=== PATIENT | male | born 1980 | race Caucasian/White ===

== ENCOUNTER 2020-02-08 23:04 | Inpatient (IN) | payer OTHER, MEDICARE ==
[~2020-02-08] VITALS: Ht 193 cm; Wt 124.8 kg
--- NOTE | ~2020-02-08 | CON ---
[address] [address] CONSULTATION Name: ED VALDOVINOS Room: [address] IN .R.#: [id number] Admission: 02/09/20 Attend Phys: Hmeal Haines MD Discharge: Date of : 82 Report #: [id number] THIS REPORT FOR: //name// cc: Maximo Plaat MD, James MD ~ THIS REPORT FOR: //name// CC: Hemal Plata DATE OF SERVICE: 02/10/2020 CHIEF COMPLAINT: Followup of cellulitis with superficial ulceration to the right dorsal second toe. HISTORY OF PRESENT ILLNESS: He has diabetes mellitus with distal sensory neuropathy and end-stage renal disease. He is on oral clindamycin 300 mg t.i.d. with good tolerance. Wound cultures are pending, no organisms on Gram stain. Blood culture negative. The patient feels well, good appetite, denies foot pain, although he has extensive diabetic peripheral sensory neuropathy. LABORATORY DATA: WBC 7.2, RBC 2.86, hemoglobin 8.7, hematocrit 24.8, platelets 229. BUN 28, creatinine 3.3, potassium 3.3. PHYSICAL EXAMINATION: VITAL SIGNS: Temperature 97.9, pulse 79, respirations 15, blood pressure 145/85. EXTREMITIES: There is decreased inflammation of the right second toe with superficial ulcer overlying the PIP joint. The wound has red granulation with some loose blistered skin at the margins. There is no exposed bone, tendon, or joint. He has rigid hammertoe contractures of the right second through fifth toes. His foot is warm with strong dorsalis pedis and posterior tibial pulses. Overall, much clinically improved. The left BKA stump has some dry keratosis with no inflammation or open lesions. IMPRESSION: Resolving cellulitis with ulceration of right dorsal second toe, complicated by type 2 diabetes mellitus. PLAN: I debrided the wound with scalpel and scissors to remove subcutaneous tissue and slough from the wound bed. Scant bleeding was achieved and stopped with pressure. The wound was cleansed and dressed with Xeroform, silver foam, and roll gauze. I do not anticipate any surgical debridement at this time. By: 1353 [id number] Martin DPM /christiano
[~2020-02-08 23:04] MED LIST: DOXYCYCLINE 10100 MG PO; INVOKANA300 MG PO; LANTUS100 UNIT/M SUBQ; LISINOPRIL20 MG PO; METFORMIN HCL500 MG PO; NORCO 5-325 TA1 EAC1 PO; NOVOLOG100 UNIT/1 SUBQ
[2020-02-08 23:50] VITALS: BP 200/119
[2020-02-08] MEDS ORDERED: METFORMIN HCL500 M3 PO (23:54)
[2020-02-08] MEDS ORDERED: LIPITOR80 MG PO (23:54)
[2020-02-08] MEDS ORDERED: XANAX 0.5 MG0.5 M1 PO (23:55)
[2020-02-08] MEDS ORDERED: JARDIANCE25 MG PO (23:55)
[2020-02-08] MEDS ORDERED: ESCITALOPRAM OX10 MG PO (23:56)
[2020-02-09 01:31] LABS: ABSOLUTE BASOPHILS 0.1 thou/uL (0.0-0.2); ABSOLUTE EOSINOPHILS 0.4 thou/uL (0.0-0.7); ABSOLUTE LYMPHOCYTES 1.3 thou/uL (0.8-5.3); ABSOLUTE MONOCYTES 0.8 thou/uL (0.0-1.2); ABSOLUTE NEUTROPHILS 11.4 thou/uL (1.6-8.1); BASOPHILS 0.7 %; EOSINOPHILS 3.2 %; HEMOGLOBIN 9.2 gm/dL (14.0-18.0); LYMPHOCYTES 9.4 %; MCH 30.1 pg (26.0-34.0); MCHC 35.2 g/dL (28.0-37.0); MCV 85.3 fL (80.0-100.0); MONOCYTES 5.5 %; MPV 7.3 fl. (7.2-11.1); NUCLEATED RBCS 0 /100WBC; PLATELET COUNT* 258 thou/uL (150-400); POLYS 81.2 %; RBC 3.05 mil/uL (4.50-6.00); RDW-CV 13.8 % (10.5-14.5); WBC 14.1 thou/uL (4.0-11.0)
[2020-02-09 01:40] LABS: CALCIUM 6.6 mg/dL (8.5-10.1); CREATININE 3.7 mg/dL (0.6-1.3)
[2020-02-09 01:41] LABS: POTASSIUM 2.5 mmol/L (3.5-5.1)
[2020-02-09 03:28] VITALS: BP 138/84
[2020-02-09] MEDS ORDERED: ALPRAZOLAM XR3 MG PO (08:11)
[2020-02-09] MEDS ORDERED: XANAX 0.5 MG0.5 MG PO (08:14)
[2020-02-09] MEDS ORDERED: CARVEDILOL25 MG PO ×2 (08:27→08:29)
[2020-02-09 08:30] VITALS: BP 133/74
--- NOTE | 2020-02-09 08:48 | NUR ---
Pt is A&O. Resides at home with his and 2 kids. Independent. Pt has a left leg prothesis, does not use any DME when wearing prothesis, uses a wc when he is not wearing prothesis. No hx of HH or SNF. Goal is home at ut, no needs anticipated. Following.
[2020-02-09 10:09] LABS: MAGNESIUM 1.9 mg/dL (1.8-2.4)
--- NOTE | 2020-02-09 11:53 | NUR ---
Nutrition: Pt admitted with Rt toe FX. H/o Lt BKA/prosthesis, DM. Has JERMAN. Meds: vanc, metformin, insulin, carvedilol, statin. BG 181, albumin 2.4. Admit wt: 260#. Special Precautions tray ordered. COVID pending. RD did not enter room. Consult recevied for wound on Lt stump. Ordered Santy to aid in wound healing. GOALS: tight BG control, Santy BID. Consider mild risk at this time.
[2020-02-09 12:00] VITALS: BP 155/89
[2020-02-09 13:34] LABS: URINE BILIRUBIN NEGATIVE (Negative); URINE BLOOD 2+ (Negative); URINE CLARITY CLEAR; URINE COLOR YELLOW; URINE GLUCOSE-RANDOM 1+ (Negative); URINE KETONES NEGATIVE (Negative); URINE LEUKOCYTES-REFLEX NEGATIVE (Negative); URINE NITRITE-REFLEX NEGATIVE (Negative); URINE PROTEIN 3+ (Negative); URINE UROBILINOGEN 0.2 E.U./dl (0.2-1.0)
[2020-02-09 13:41] LABS: BACTERIA-REFLEX 1-9 Few /HPF (None Seen); COARSE GRANULAR CASTS 0-3 Few /LPF (None Seen); CRYSTALS None Seen /LPF (None Seen); HYALINE CASTS 0-3 Few /LPF (None Seen); SQUAMOUS 0-3 Few /LPF (0-3); URINE RBC 0-2 Rare /HPF (0-2); URINE WBC-REFLEX 0-5 Rare /HPF (0-5)
[2020-02-09 15:25] LABS: ALBUMIN 1.8 g/dL (3.4-5.0); CALCIUM 6.8 mg/dL (8.5-10.1); CREATININE 3.6 mg/dL (0.6-1.3); POTASSIUM 3.1 mmol/L (3.5-5.1); TOTAL BILIRUBIN 0.2 mg/dL (<0.1-1.0); TOTAL PROTEIN 5.7 g/dL (6.4-8.2)
[2020-02-10] VITALS: BP 103/62
[2020-02-10 01:12] VITALS: BP 157/93
[2020-02-10 04:00] VITALS: BP 155/90
--- NOTE | 2020-02-10 05:47 | NUR ---
NO ACUTE CHANGES THROUGHOUT SHIFT. VSS. ALL ROUNDINGS COMPLETED, ALL NEEDS MET, FULL ASSESSMENT COMPLETED CHARTED.
[2020-02-10 06:14] LABS: ABSOLUTE BASOPHILS 0.1 thou/uL (0.0-0.2); ABSOLUTE EOSINOPHILS 0.4 thou/uL (0.0-0.7); ABSOLUTE LYMPHOCYTES 1.2 thou/uL (0.8-5.3); ABSOLUTE MONOCYTES 0.6 thou/uL (0.0-1.2); ABSOLUTE NEUTROPHILS 4.9 thou/uL (1.6-8.1); BASOPHILS 1.1 %; EOSINOPHILS 5.9 %; HEMATOCRIT 24.8 % (42.0-52.0); HEMOGLOBIN 8.7 gm/dL (14.0-18.0); LYMPHOCYTES 16.5 %; MCH 30.3 pg (26.0-34.0); MCHC 34.9 g/dL (28.0-37.0); MCV 86.7 fL (80.0-100.0); MONOCYTES 8.7 %; MPV 7.7 fl. (7.2-11.1); NUCLEATED RBCS 0 /100WBC; PLATELET COUNT* 229 thou/uL (150-400); POLYS 67.8 %; RBC 2.86 mil/uL (4.50-6.00); RDW-CV 13.6 % (10.5-14.5); WBC 7.2 thou/uL (4.0-11.0)
[2020-02-10 06:31] LABS: CALCIUM 6.6 mg/dL (8.5-10.1); CREATININE 3.3 mg/dL (0.6-1.3); MAGNESIUM 1.8 mg/dL (1.8-2.4); PHOSPHORUS* 4.1 mg/dL (2.5-4.9); POTASSIUM 3.3 mmol/L (3.5-5.1)
[2020-02-10 07:54] VITALS: BP 154/99
--- NOTE | 2020-02-10 10:55 | NUR ---
ASSUMED CARE OF PT THIS AM AROUND 0715- PRIMARY CARE PEDIATRICIAN IN PLACE ORDERED, TRACING SR- UPON ASSESSMENT PT NOTED TO BE RESTING IN BED- PT A&O X4- CONT OF BOWEL AND BLADDER- UP AD-LANA WITH NOTED LBKA AND USE OF PROSTHESIS- LCTA, RESP EVEN AND UN-LABORED- VSS, O2 SAT 100% ON RA- ABD SOFT/ROUND/NON-TENDER, BS X4 QUADS- LAST BM REPORTED 02/09/20- IV NOTED TO RIGHT AC AND LEFT FA INTACT, IVF INFUSSING PRESCRIBED- GOOD PO INTAKE NOTED WITH MEALS, BS MONITORED ORDERED WITH SSI PRESCRIBED- PT RATES PAIN 12/08 TO RIGHT 2ND TOE AND LEFT STUMP THIS AM- PRN HYDROCODONE GIVEN AT 0835, PT REPORTS PAIN MEDICATION TO BE EFFECTIVE- CALL LIGHT AND PERSONAL BELONGINGS WITH IN REACH- PT MAKES NEEDS KNOWN- ALL NEEDS MET AT THIS TIME-WCTM
[2020-02-10 12:00] VITALS: BP 145/85
--- NOTE | 2020-02-10 13:48 | CON ---
[address] [address] CONSULTATION Name: ED VALDOVINOS Room: [address] IN [facility]#: [id number] Admission: 02/09/20 Attend Phys: Hemal Haines MD Discharge: Date of : 82 Report #: [id number] THIS REPORT FOR: //name// cc: Maximo Plata MD, James MD ~ THIS REPORT FOR: //name// CC: Hemal Plata DATE OF SERVICE: 02/09/2020 ADMISSION DIAGNOSIS: Hypokalemia, hypomagnesemia, hyponatremia, cellulitis, right second toe. HISTORY OF PRESENT ILLNESS: He was admitted to the Emergency Department last night with chills while resting at home. He has a history of septicemia secondary to diabetes and deep tissue infection of his left BKA stump and right foot. He has had prior right hallux and partial first metatarsal resection and multiple surgical debridements for osteomyelitis. He had subsequent healing, denies a history of vascular surgery to either extremity. He has a chronic right Charcot foot deformity. He noticed the right second toe becoming red and inflamed with blister formation several days ago. His blood glucose normally runs in the 150-200 range. He is diabetic peripheral sensory neuropathy and stage 2 chronic kidney disease. He was initially on parenteral vancomycin, converted to oral clindamycin 300 mg q.i.d. LABORATORY DATA: WBC 14.1, RBC 3.05, hemoglobin 9.2, hematocrit 26.0, platelets 258. BUN 28, creatinine 3.6, glucose 188. Albumin 1.8. ESR 99. PHYSICAL EXAMINATION: Temperature 98.6, pulse 111, respirations 22, blood pressure 155/89. There is inflammation to the right second toe with rigid hammertoe deformity. There is intact blister to the dorsal and plantar base of the toe. The toenail is intact, but slightly loose. The remaining foot has no open lesions. He has had a prior right hallux and distal first ray resection with healed scar. The right third, fourth and fifth toes are also rigid hammertoe deformities with no lesions. He has strong right dorsalis pedis and posterior tibial pulses. He has hemosiderosis and venous insufficiency to the right lower extremity with +3 edema. He has a stable Charcot type foot with slight rocker bottom deformity at the calcaneocuboid joint. He has a fairly rectus foot type and can achieve roughly 90 degrees at the ankle. There is some callusing to the stump of the left BK amputation with no inflammation or drainage. IMPRESSION: Cellulitis with blisters of the right 2nd toe, diabetes mellitus, peripheral neuropathy, end-stage renal disease, [place] [address] CONSULTATION Name: ED VALDOVINOS Room: [address] IN [facility]#: [id number] Admission: 02/09/20 Attend Phys: Hmeal Haines MD Discharge: Date of : 82 Report #: [id number] PLAN: Tomorrow drain his blisters and perhaps perform a toenail avulsion, depending on how loose the nail was and if there are any blisters contiguous with the nail bed. I do not anticipate any formal surgical debridement. X-rays were negative for osteomyelitis. <ELECTRONICALLY SIGNED> By: Stef Martin DPM 02/10/20 1348 1738 1958Stef Martin DPM /christiano
[2020-02-10 16:00] VITALS: BP 136/78
[2020-02-11] VITALS: BP 138/70
[2020-02-11 03:57] VITALS: BP 137/87
--- NOTE | 2020-02-11 05:21 | NUR ---
NO ACUTE CHANGES THROUGHOUT SHIFT. VSS. ALL ROUNDINGS COMPLETED, ALL NEEDS MET, FULL ASSESSMENT COMPLETED CHARTED.
[2020-02-11 08:00] VITALS: BP 154/93
--- NOTE | 2020-02-11 08:23 | NUR ---
RECIEVED REPORT AROUND 0710. ASSUMED CARE. VS AND ASSESSMENT CHARTED. PT HAD NO REPORT OF PAIN. ATTACHED TO HEART MONITOR. CRITICAL I&O IN PLACE. IV INTACT. LEFT BKA WOUND OPEN TO AIR AND HEALING. RIGHT TOE WRAPPED. PT STATED "I'M ABLE TO GET AROUND FINE." PT WOULD LIKE TO TALK TO THE DOCTOR ABOUT IV FLUIDS BEFORE RECIEVING ANY DUE TO PAST EXPERIENCE. CALL LIGHT WITHIN REACH. WILL CONTINUE TO MONITOR.
[2020-02-11] MEDS ORDERED: CLEOCIN HCL300 MG PO (09:52)
[2020-02-11 10:14] LABS: ABSOLUTE BASOPHILS 0.1 thou/uL (0.0-0.2); ABSOLUTE EOSINOPHILS 0.3 thou/uL (0.0-0.7); ABSOLUTE LYMPHOCYTES 0.9 thou/uL (0.8-5.3); ABSOLUTE MONOCYTES 0.5 thou/uL (0.0-1.2); ABSOLUTE NEUTROPHILS 4.3 thou/uL (1.6-8.1); BASOPHILS 1.1 %; EOSINOPHILS 5.2 %; HEMATOCRIT 23.2 % (42.0-52.0); HEMOGLOBIN 8.1 gm/dL (14.0-18.0); LYMPHOCYTES 15.5 %; MCH 30.5 pg (26.0-34.0); MCHC 35.2 g/dL (28.0-37.0); MCV 86.7 fL (80.0-100.0); MONOCYTES 7.5 %; MPV 7.8 fl. (7.2-11.1); NUCLEATED RBCS 0 /100WBC; PLATELET COUNT* 222 thou/uL (150-400); POLYS 70.7 %; RBC 2.67 mil/uL (4.50-6.00); RDW-CV 13.5 % (10.5-14.5); WBC 6.1 thou/uL (4.0-11.0)
[2020-02-11 10:26] LABS: CALCIUM 6.9 mg/dL (8.5-10.1); CREATININE 3.1 mg/dL (0.6-1.3); POTASSIUM 3.7 mmol/L (3.5-5.1)
[2020-02-11 12:00] VITALS: BP 129/76
[2020-02-11 16:17] VITALS: BP 151/89
--- NOTE | 2020-02-11 16:33 | NUR ---
NO NEW CHANGES FROM MORNING ASSESSMENT. PT HAS NOT REPORTED ANY PAIN AFTER THIS MORNING. HEART MONITOR IN PLACE. IV INTACT. HOURLY ROUNDING PERFORMED. MEDICATION PER AUG. CALL LIGHT WITHIN REACH. WILL CONTINUE TO MONITOR.
[2020-02-11 20:00] VITALS: BP 171/102
[2020-02-12] VITALS: BP 161/91
[2020-02-12 04:06] LABS: GLYCOHEMOGLOBIN (HGB A1C) 10.4 % (4.8-5.6)
[2020-02-12 04:29] VITALS: BP 163/94
[2020-02-12 05:02] LABS: ABSOLUTE BASOPHILS 0.1 thou/uL (0.0-0.2); ABSOLUTE EOSINOPHILS 0.3 thou/uL (0.0-0.7); ABSOLUTE LYMPHOCYTES 1.3 thou/uL (0.8-5.3); ABSOLUTE MONOCYTES 0.5 thou/uL (0.0-1.2); ABSOLUTE NEUTROPHILS 4.3 thou/uL (1.6-8.1); BASOPHILS 1.3 %; EOSINOPHILS 4.6 %; HEMATOCRIT 25.1 % (42.0-52.0); HEMOGLOBIN 8.7 gm/dL (14.0-18.0); LYMPHOCYTES 20.2 %; MCH 29.9 pg (26.0-34.0); MCHC 34.7 g/dL (28.0-37.0); MCV 85.9 fL (80.0-100.0); MONOCYTES 7.3 %; MPV 7.4 fl. (7.2-11.1); NUCLEATED RBCS 0 /100WBC; PLATELET COUNT* 244 thou/uL (150-400); POLYS 66.6 %; RBC 2.92 mil/uL (4.50-6.00); RDW-CV 13.9 % (10.5-14.5); WBC 6.5 thou/uL (4.0-11.0)
[2020-02-12 05:08] LABS: CALCIUM 7.2 mg/dL (8.5-10.1); CREATININE 3.1 mg/dL (0.6-1.3); POTASSIUM 3.2 mmol/L (3.5-5.1)
--- NOTE | 2020-02-12 05:36 | NUR ---
ASSESSMENT COMPLETED AT BEDSIDE, PLEASE REFER TO CHARTING FOR DETAILS. MEDICATIONS ADMINISTERED PER MAR. HOURLY ROUNDING FOR SAFETY. C/O PAIN TO LEGS, TREATED WITH PRN PAIN MEDICATIONS. NO OTHER ISSUES NOTED BY PT AT THIS TIME. RESTING IN BED WITH CALL LIGHT WITHIN REACH.
[2020-02-12 08:00] VITALS: BP 168/98
[2020-02-12 11:50] VITALS: BP 187/106
--- NOTE | 2020-02-12 13:17 | CON ---
[address] [address] CONSULTATION Name: ED VALDOVINOS Room: [address] IN M.R.#: [id number] Admission: 02/09/20 Attend Phys: Hemal Haines MD Discharge: Date of : 82 Report #: [id number] THIS REPORT FOR: //name// cc: Maximo Plata MD, James MD ~ THIS REPORT FOR: //name// CC: Hemal Plata DATE OF SERVICE: 02/09/2020 NEPHROLOGY CONSULT CONSULTING PHYSICIAN: Dr. Haines. REASON FOR NEPHROLOGY CONSULTATION: Hypokalemia, hypomagnesemia, and acute kidney injury. REASON FOR ADMISSION: Hypokalemia, hypomagnesemia, and acute kidney injury. HISTORY OF PRESENT ILLNESS: This is a 40-year-old male who has past medical history of diabetes type 2, diagnosed about 18 years ago and he is not aware if he has diabetic retinopathy or not; has history of hypertension and other medical problems, came in after he was having chills at home. He was having drainage from his wound from the anterior aspect of his left above-knee amputation. Amputation was done about [address] [facility]. His creatinine was found to be 3.7. Prior to that, he had a creatinine of 1.6 in 2017. He denies having any knowledge of any kidney problems, but says that when he did have his below-knee amputation 3 years ago he did have some kidney dysfunction at that time. He also says that his lisinopril was stopped a few years ago because of kidney dysfunction. He reports not using any NSAIDs. No history of kidney stones. He does have constant diarrhea because of irritable bowel syndrome. In addition to other medications, he does take metformin and Jardiance. He has no trouble urinating. He has been started on vancomycin over here in the IV form to help with his infection of the stump. He was also found to have a sodium of 134, potassium of 2.5, and magnesium 1.0. REVIEW OF SYSTEMS: As mentioned in history of present illness. Otherwise, no shortness of breath, no nausea or vomiting. Otherwise, 10-point review of systems are negative. ALLERGIES: No known allergies. HOME MEDICATIONS: Include he is not taking lisinopril anymore. He is taking metformin, insulin glargine, atorvastatin, Jardiance which started about [address] [place] [address] CONSULTATION Name: ED VALDOVINOS Room: [address] IN [facility]#: [id number] Admission: 02/09/20 Attend Phys: Hemal Haines MD Discharge: Date of : 82 Report #: [id number] months ago, citalopram, alprazolam, carvedilol, and insulin aspart. PAST MEDICAL AND SURGICAL HISTORY: Includes diabetes mellitus diagnosed about 18 years ago, amputation of left leg below-knee amputation, blood clots, hypertension, osteomyelitis, likely chronic kidney disease, sepsis x 2, and gangrene. SOCIAL HISTORY: Does not use recreational drugs. He does smoke every day. He lives at home with his and has 2 children. Uses alcohol only on special occasions, 1-2 beers. FAMILY HISTORY: No history of kidney problems in the family that he knows of. PHYSICAL EXAMINATION: VITAL SIGNS: Blood pressure is 133/74, respiratory rate is 16, pulse rate is 78, temperature is 36.3, and pulse ox 97% on room air. GENERAL: He is awake, alert, and oriented x 3. HEAD AND EYES: Atraumatic, normocephalic. Normal conjunctivae. EARS, NOSE, AND THROAT: Normal ears and nose. Mucous membranes are moist. NECK: No JVD. CHEST: Bilaterally clear to auscultation posteriorly. No crackles or wheezing. CARDIOVASCULAR: S1, S2 normal. No murmurs noted. ABDOMEN: Soft, nondistended, and nontender. Bowel sounds are present. EXTREMITIES: Lower extremities, there is no lower extremity edema. Left below-knee amputation and there is an open area on the stump. Currently, there is no drainage from there. NEUROLOGIC: Neurologic function is Grossly intact. PSYCHIATRIC: Mood and affect seems to be normal. LABORATORY DATA: WBC 14.1, hemoglobin is 9.2, and platelet count was normal. Sodium was 134, potassium was 2.5, magnesium is 1.0, and creatinine was 3.7 and other labs are reviewed. IMAGING: Toe x-ray was reviewed. ASSESSMENT: 1. Acute kidney injury on likely chronic kidney disease, baseline creatinine is not known. Creatinine was 3.7 on admission. UA and renal ultrasound need to be checked. He likely has underlying diabetic nephropathy. He does have persistent diarrhea because of irritable bowel syndrome and he does take Jardiance at home, which could have exacerbated his kidney injury as well. 2. Mild hyponatremia because of acute renal insufficiency. 3. Hypokalemia, this is because of diarrhea. 4. Hypomagnesemia, also diarrhea could be contributing, metformin could also be contributing to his diarrhea. 5. Left below-knee amputation stump infection. He is on antibiotics as per [address] [place] [address] CONSULTATION Name: ED VALDOVINOS Room: [address] IN M.R.#: [id number] Admission: 02/09/20 Attend Phys: Hemal Haines MD Discharge: Date of : 82 Report #: [id number] primary team. 6. History of hypertension. Blood pressure seems to be controlled now. It was high when he first came into the hospital, but he was in pain . 7. History of diabetic neuropathy. PLAN: 1. Continue with IV fluids, normal saline at 100 mL an hour, check a bladder scan and he should be on strict I's and O's. We will check a UA and renal ultrasound. 2. We will check a CPK level as well. 3. We will check a urine protein to creatinine ratio. 4. Try to find his baseline creatinine from his doctor's office. 5. Try to avoid vancomycin and also avoid use of Bactrim. Please use an alternative antibiotic. 6. Keep holding metformin as well as Jardiance. No SÁNCHEZ inhibitors or ARB. In fact, he was not taking lisinopril at home as well. 7. Avoid any NSAIDs and other nephrotoxic agents and IV contrast. 8. Labs in the morning and keep replacing potassium and magnesium according to protocol. Thank you for this consultation. We will continue to follow with you. Discussed with the patient and the patient's nurse. <ELECTRONICALLY SIGNED> By: Twyla Bonilla MD 02/12/20 1317 0940 [id number] jayesh Del Rio
[2020-02-12 15:36] VITALS: BP 187/106
[2020-02-12 15:39] VITALS: BP 187/106
--- NOTE | 2020-02-12 16:12 | NUR ---
CM SPOKE TO THE PT TO F/U AND DISCUSS D/C PLANNING NEEDS. PT CONFIRMS NO NEEDS ANTICIPATED AT D/C. CM WILL REMAIN AVAILABLE TO ASSIST AND FOLLOW NEEDED.
--- NOTE | 2020-02-12 18:12 | NUR ---
At 1630 pt was discharged from room 221. Pt remains alert, oriented x 4. Skin warm and dry to touch. No c/o pain or distress. Pt allows his dismissal instructions to be reviewed with his spouse. IV dc'd by sky. Pt to exit via wheelchair and assisted to car. Stable at time of dismissal
== END 2020-02-12 16:30 | disposition home or self-care (01) | DRG 570 ==
LOC: M.ERS 23:04 → M.2W 02-09 03:01 → M.TBA-ER 02-09 03:01 → M.2W 02-09 03:06
PROVIDERS: Emergency Medicine; Internal Medicine; ADMIT Internal Medicine; ATTEND Internal Medicine
PROC: 0JBQ0ZZ Excision of Right Foot Subcutaneous Tissue and Fascia, Open Approach (ICD-10-PCS; principal; 2020-02-09)
DX: L03.031 Cellulitis of right toe (principal); N18.6 End stage renal disease; N17.9 Acute kidney failure, unspecified; E87.1 Hypo-osmolality and hyponatremia; L97.829 Non-pressure chronic ulcer of other part of left lower leg with unspecified severity; L03.116 Cellulitis of left lower limb; T87.44 Infection of amputation stump, left lower extremity; I12.0 Hypertensive chronic kidney disease with stage 5 chronic kidney disease or end stage renal disease; E11.22 Type 2 diabetes mellitus with diabetic chronic kidney disease; N18.9 Chronic kidney disease, unspecified; E87.6 Hypokalemia; E83.42 Hypomagnesemia; E11.40 Type 2 diabetes mellitus with diabetic neuropathy, unspecified; E11.621 Type 2 diabetes mellitus with foot ulcer; L97.519 Non-pressure chronic ulcer of other part of right foot with unspecified severity; F17.210 Nicotine dependence, cigarettes, uncomplicated; K58.0 Irritable bowel syndrome with diarrhea; E78.5 Hyperlipidemia, unspecified; Y83.8 Other surgical procedures as the cause of abnormal reaction of the patient, or of later complication, without mention of misadventure at the time of the procedure; S92.911A Unspecified fracture of right toe(s), initial encounter for closed fracture; X58.XXXA Exposure to other specified factors, initial encounter; Y93.89 Activity, other specified; Y92.89 Other specified places as the place of occurrence of the external cause; Y99.8 Other external cause status; Z03.818 Encounter for observation for suspected exposure to other biological agents ruled out; Z89.512 Acquired absence of left leg below knee

== ENCOUNTER → 2020-02-23 | Outpatient (CLI) | payer OTHER, MEDICARE ==
[~2020-02-23] MED LIST changes: +ALPRAZOLAM XR3 MG PO; +CARVEDILOL25 MG PO; +CLEOCIN HCL300 MG PO; +ESCITALOPRAM OX10 MG PO; +JARDIANCE25 MG PO; +LIPITOR80 MG PO; +METFORMIN HCL500 M3 PO; +XANAX 0.5 MG0.5 M1 PO; +XANAX 0.5 MG0.5 MG PO
[2020-02-23 12:10] LABS: ABSOLUTE BASOPHILS 0.1 thou/uL (0.0-0.2); ABSOLUTE EOSINOPHILS 0.5 thou/uL (0.0-0.7); ABSOLUTE LYMPHOCYTES 1.1 thou/uL (0.8-5.3); ABSOLUTE MONOCYTES 0.6 thou/uL (0.0-1.2); BASOPHILS 1.2 %; EOSINOPHILS 6.1 %; HEMATOCRIT 24.8 % (42.0-52.0); HEMOGLOBIN 8.6 gm/dL (14.0-18.0); LYMPHOCYTES 13.2 %; MCH 29.8 pg (26.0-34.0); MCHC 34.5 g/dL (28.0-37.0); MCV 86.4 fL (80.0-100.0); MPV 7.6 fl. (7.2-11.1); NUCLEATED RBCS 0 /100WBC; PLATELET COUNT* 251 thou/uL (150-400); POLYS 72.5 %; RBC 2.88 mil/uL (4.50-6.00); RDW-CV 13.6 % (10.5-14.5); WBC 8.3 thou/uL (4.0-11.0)
[2020-02-23 12:26] LABS: ALBUMIN 2.2 g/dL (3.4-5.0); ALKALINE PHOSPHATASE 81 U/L (46-116); ANION GAP 9 mmol/L (7-16); BUN 32 mg/dL (7-18); CALCIUM 7.2 mg/dL (8.5-10.1); CHLORIDE 107 mmol/L (98-107); CHOLESTEROL 133 mg/dL (<200); CO2 25 mmol/L (21-32); CREATININE 3.9 mg/dL (0.6-1.3); DIRECT BILIRUBIN 0.1 mg/dL (<0.1-0.3); GLUCOSE 148 mg/dL (70-99); HDL CHOLESTEROL 42 mg/dL (>40); LDL CHOLESTEROL 52 mg/dL (<100); POTASSIUM 4.2 mmol/L (3.5-5.1); SGOT 19 U/L (15-37); SGPT 22 U/L (30-65); SODIUM 141 mmol/L (136-145); TC:HDL 3.2 Ratio (Not establshd); TOTAL BILIRUBIN 0.3 mg/dL (<0.1-1.0); TOTAL PROTEIN 6.4 g/dL (6.4-8.2); TRIGLYCERIDE 198 mg/dL (<150); VLDL 40 mg/dL (<40)
[2020-02-23 12:27] LABS: SERUM ASSESSMENT Clear
[2020-02-24 02:06] LABS: GLYCOHEMOGLOBIN (HGB A1C) 9.3 % (4.8-5.6)
== END ==
LOC: M.LAB 11:27
PROVIDERS: ATTEND Surgery
DX: Z00.00 Encounter for general adult medical examination without abnormal findings (principal)

== ENCOUNTER → 2020-02-26 | Outpatient (CLI) | payer OTHER, MEDICARE | LOC: M.ULTRA 10:30 | PROVIDERS: ATTEND Surgery | DX: M79.89 Other specified soft tissue disorders (principal); R60.0 Localized edema ==

== ENCOUNTER → 2020-03-11 | Outpatient (CLI) | payer OTHER, MEDICARE ==
[2020-03-11 09:30] LABS: CREATININE 5.2 mg/dL (0.6-1.3)
[2020-03-11 09:50] LABS: CALCIUM 5.9 mg/dL (8.5-10.1)
== END ==
LOC: M.LAB 08:48
PROVIDERS: ATTEND Nurse Practitioner Family
DX: N17.9 Acute kidney failure, unspecified (principal)

== ENCOUNTER → 2020-04-11 | Outpatient (CLI) | payer OTHER, MEDICARE ==
[~2020-04-11] MED LIST changes: +FUROSEMIDE 40 M40 M1 PO; +HUMALOG100 UNIT/1 SUBQ; +HYDRALAZINE 5050 MG PO; +NORCO 10-325 T1 EACH PO; +NORCO 5-325 TA1 EAC2 PO; +PREGABALIN50 MG PO
== END ==
LOC: M.LAB 14:51
PROVIDERS: ATTEND Surgery
DX: Z01.812 Encounter for preprocedural laboratory examination (principal); Z20.828 Contact with and (suspected) exposure to other viral communicable diseases; E11.22 Type 2 diabetes mellitus with diabetic chronic kidney disease; N18.6 End stage renal disease; Z99.2 Dependence on renal dialysis

== ENCOUNTER → 2020-04-14 | Day surgery (SDC) | payer OTHER, MEDICARE ==
--- NOTE | ~2020-04-14 | OP ---
[facility] [address] [place] [address] OPERATIVE REPORT Name: ED VALDOVINOS Room: [facility]#: [id number] Admission: 04/14/20 Attend Phys: Carlos Forman Discharge: Date of : 82 Report #: [id number] THIS REPORT FOR: //name// cc: Maximo Plata MD, James MD ~ CC: Maximo Forman DATE OF SERVICE: 04/14/2020 PREOPERATIVE DIAGNOSIS: End-stage renal disease. POSTOPERATIVE DIAGNOSIS: End-stage renal disease. OPERATION: 1. Laparoscopic placement of tunneled intraperitoneal catheter. 2. Laparoscopic omentopexy. SURGEON: Carlos Forman MD ANESTHESIA: General. ESTIMATED BLOOD LOSS: Minimal. DESCRIPTION OF PROCEDURE: After informed consent was obtained, the patient was brought to the operating room and placed supine. SCDs were placed and working, preoperative antibiotics were administered, general anesthesia was induced. The abdomen was prepped and draped in the usual sterile fashion. A 5 mm incision was made in the left upper quadrant. A 5 mm trocar was placed under direct vision. Pneumoperitoneum was established. A left-sided 5 mm trocar was placed. I first began by taking the omentum and reflected it superiorly. A 2-0 Vicryl suture was placed in the right upper quadrant using a PMI suture passer. It was brought to the omentum and then brought up back to the skin, thereby performing the omentopexy. This was done also in the left upper quadrant. The sutures were tied down. An 8 mm trocar was placed in the left rectus sheath. A 62 cm Covidien catheter was placed through the catheter. The coil was then placed down the pelvis in the midline. Catheter was then pulled away and the cuff was then brought into the rectus sheath. It was then tunneled to the left upper quadrant of the abdomen. It flushed very easily with 750 mL of heparinized saline. It drained easily as well. 500 mL was left in the abdomen. The ports were removed under direct vision. The skin was closed with 4-0 Monocryl. Incisions were sealed [place] [address] OPERATIVE REPORT Name: ED VALDOVINOS Room: [facility]#: [id number] Admission: 04/14/20 Attend Phys: Carlos Forman Discharge: Date of : 82 Report #: [id number] COMPLICATIONS: None. DISPOSITION: The patient was taken to recovery in satisfactory condition. By: 1119 [id number] Forman MD /christiano
[2020-04-14 07:31] LABS: HEMATOCRIT 27.7 % (42.0-52.0); HEMOGLOBIN 9.6 gm/dL (14.0-18.0); MCH 30.2 pg (26.0-34.0); MCHC 34.8 g/dL (28.0-37.0); MCV 86.9 fL (80.0-100.0); MPV 8.2 fl. (7.2-11.1); RBC 3.19 mil/uL (4.50-6.00); WBC 9.1 thou/uL (4.0-11.0)
[2020-04-14 07:49] LABS: CALCIUM 7.5 mg/dL (8.5-10.1); CREATININE 4.4 mg/dL (0.6-1.3); POTASSIUM 3.2 mmol/L (3.5-5.1)
--- NOTE | 2020-04-14 13:06 | EKG ---
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
== END | disposition home or self-care (01) ==
LOC: M.SUR 06:50
PROVIDERS: ATTEND Surgery
DX: I12.0 Hypertensive chronic kidney disease with stage 5 chronic kidney disease or end stage renal disease (principal); E11.22 Type 2 diabetes mellitus with diabetic chronic kidney disease; N18.6 End stage renal disease; Z79.4 Long term (current) use of insulin; Z79.899 Other long term (current) drug therapy; Z99.2 Dependence on renal dialysis; Z98.890 Other specified postprocedural states

== ENCOUNTER → 2020-04-25 | Outpatient (CLI) | payer OTHER, MEDICARE | LOC: M.RAD 09:48 | PROVIDERS: ATTEND Internal Medicine Nephrology | DX: K59.00 Constipation, unspecified (principal); Z99.2 Dependence on renal dialysis ==

== ENCOUNTER → 2020-05-02 | Outpatient (CLI) | payer OTHER, MEDICARE | LOC: M.LAB 15:24 | PROVIDERS: ATTEND Surgery | DX: U07.1 COVID-19 (principal) ==

== ENCOUNTER → 2020-05-19 | Day surgery (SDC) | payer OTHER, MEDICARE ==
[2020-05-19 07:39] LABS: HEMATOCRIT 27.4 % (42.0-52.0); HEMOGLOBIN 9.4 gm/dL (14.0-18.0); MCH 30.1 pg (26.0-34.0); MCHC 34.3 g/dL (28.0-37.0); MCV 87.9 fL (80.0-100.0); MPV 6.9 fl. (7.2-11.1); RBC 3.12 mil/uL (4.50-6.00); WBC 8.1 thou/uL (4.0-11.0)
[2020-05-19 07:47] LABS: CALCIUM 6.9 mg/dL (8.5-10.1); CREATININE 4.9 mg/dL (0.6-1.3); POTASSIUM 3.3 mmol/L (3.5-5.1)
--- NOTE | 2020-06-16 11:07 | OP ---
[facility] [address] [place] [address] OPERATIVE REPORT Name: ED VALDOVINOS Room: [facility]#: [id number] Admission: 05/19/20 Attend Phys: Carlos Forman Discharge: Date of : 82 Report #: [id number] THIS REPORT FOR: cc: Maximo Plata MD, James MD ~ Carlos Forman MD CC: Maximo Forman DATE OF SERVICE: 05/19/2020 PREOPERATIVE DIAGNOSIS: End-stage renal disease with malfunctioning peritoneal catheter. POSTOPERATIVE DIAGNOSIS: End-stage renal disease with malfunctioning peritoneal catheter. OPERATION: Laparoscopic revision of peritoneal catheter with removal of obstructive material. SURGEON: Dr. Carlos Forman ANESTHESIA: General. ESTIMATED BLOOD LOSS: Minimal. SPECIMEN: None. DESCRIPTION OF PROCEDURE: After informed consent was obtained, the patient was brought to the operating room and placed supine. SCDs were placed and working, preoperative antibiotics were administered, general anesthesia was induced. The abdomen was prepped and draped in the usual sterile fashion. A 5 mm incision was made in the left upper quadrant. A 5 mm trocar was placed under direct vision. Left-sided 8 mm trocar and left-sided 5 mm trocar were placed. The catheter was stuck down in some small bowel with some omentum wrapped around the catheter. This was loosened up and the catheter was placed into its normal position down the pelvis. There was an exposed part of the internal cuff. I therefore made a tunnel in the peritoneum next to the cuff. I then threaded the catheter through this tunnel, so that the catheter was covered by peritoneum. I then stitched the peritoneum over the cuff using a 2-0 V-Loc suture, so that there was no exposed cuff and was all covered by peritoneum. A 2-0 Vicryl suture was used with a suture passer to suture the catheter in its position, so it went down to the pelvis. Ports were removed under direct vision. The skin was closed with 4-0 Monocryl. [place]athe[place] [address] OPERATIVE REPORT Name: ED VALDOVINOS Room: [facility]#: [id number] Admission: 05/19/20 Attend Phys: Carlos Forman Discharge: Date of : 82 Report #: [id number] 500 mL of normal saline and drained as well. COMPLICATIONS: None. DISPOSITION: The patient was taken to recovery in satisfactory condition. <ELECTRONICALLY SIGNED> By: Carlos Forman MD 06/16/20 1107 1113 1220Joblessing Forman MD /nt
== END | disposition home or self-care (01) ==
LOC: M.SUR 06:17
PROVIDERS: ATTEND Surgery
DX: T85.691A Other mechanical complication of intraperitoneal dialysis catheter, initial encounter (principal); I12.0 Hypertensive chronic kidney disease with stage 5 chronic kidney disease or end stage renal disease; E11.22 Type 2 diabetes mellitus with diabetic chronic kidney disease; N18.6 End stage renal disease; E11.621 Type 2 diabetes mellitus with foot ulcer; F17.210 Nicotine dependence, cigarettes, uncomplicated; Z98.890 Other specified postprocedural states; Z79.899 Other long term (current) drug therapy; Z79.4 Long term (current) use of insulin; Y83.8 Other surgical procedures as the cause of abnormal reaction of the patient, or of later complication, without mention of misadventure at the time of the procedure

== ENCOUNTER → 2020-06-03 | Outpatient (CLI) | payer OTHER, MEDICARE | LOC: M.RAD 14:40 | PROVIDERS: ATTEND Internal Medicine Nephrology | DX: T85.691A Other mechanical complication of intraperitoneal dialysis catheter, initial encounter (principal) ==

== ENCOUNTER → 2020-06-09 | Day surgery (SDC) | payer OTHER, MEDICARE ==
--- NOTE | ~2020-06-09 | OP ---
[facility] [address] [place] [address] OPERATIVE REPORT Name: ED VALDOVINOS Room: [facility]#: [id number] Admission: 06/09/20 Attend Phys: Carlos Forman Discharge: Date of : 82 Report #: [id number] THIS REPORT FOR: cc: Maximo Plata MD, James MD ~ Carlos Forman MD DATE OF SERVICE: 06/09/2020 PREOPERATIVE DIAGNOSIS: End-stage renal disease. POSTOPERATIVE DIAGNOSIS: End-stage renal disease. OPERATION: Diagnostic laparoscopy. SURGEON: Carlos Forman MD ANESTHESIA: General. ESTIMATED BLOOD LOSS: Minimal. SPECIMEN: None. DESCRIPTION OF PROCEDURE: After informed consent was obtained, the patient was brought to the operating room and placed supine. SCDs were placed and working, preoperative antibiotics were administered, general anesthesia was induced. The abdomen was prepped and draped in the usual sterile fashion. A 5 mm incision was made in the left upper quadrant. A 5 mm trocar was placed under direct vision. Pneumoperitoneum was established. Left-sided 5 mm trocar was placed. Attention was then directed down into the pelvis. The catheter was wrapped in some epiploic fat, which had stuck to the left pelvic side wall. Catheter was removed from the tunnel and placed down in the pelvis. The catheter then flushed easily with heparinized saline and drained easily as well. The ports were then removed under direct vision. Skin was closed with 4-0 Monocryl. Incisions were dressed with Steri-Strips. COMPLICATIONS: None. DISPOSITION: The patient was taken to recovery in satisfactory condition. By: 1418 1425Carlos Forman MD /nt
[2020-06-09 10:18] LABS: HEMATOCRIT 32.2 % (42.0-52.0); MCH 30.3 pg (26.0-34.0); MCHC 34.1 g/dL (28.0-37.0); MCV 88.8 fL (80.0-100.0); MPV 7.3 fl. (7.2-11.1); RBC 3.63 mil/uL (4.50-6.00); WBC 10.9 thou/uL (4.0-11.0)
[2020-06-09 10:21] LABS: CALCIUM 7.6 mg/dL (8.5-10.1); CREATININE 4.2 mg/dL (0.6-1.3); POTASSIUM 3.8 mmol/L (3.5-5.1)
== END | disposition home or self-care (01) ==
LOC: M.SUR 05:56
PROVIDERS: ATTEND Surgery
DX: T85.691A Other mechanical complication of intraperitoneal dialysis catheter, initial encounter (principal); I12.0 Hypertensive chronic kidney disease with stage 5 chronic kidney disease or end stage renal disease; E11.22 Type 2 diabetes mellitus with diabetic chronic kidney disease; N18.6 End stage renal disease; M86.9 Osteomyelitis, unspecified; F17.210 Nicotine dependence, cigarettes, uncomplicated; Z98.890 Other specified postprocedural states; Z79.4 Long term (current) use of insulin; Z79.899 Other long term (current) drug therapy; Y83.8 Other surgical procedures as the cause of abnormal reaction of the patient, or of later complication, without mention of misadventure at the time of the procedure

== ENCOUNTER → 2020-07-06 | Outpatient (CLI) | payer OTHER, MEDICARE | END | disposition home or self-care (01) | LOC: M.INT 10:46 | PROVIDERS: ATTEND Pathology Anatomic Pathology & Clinical Pathology | DX: Z45.2 Encounter for adjustment and management of vascular access device (principal); E11.40 Type 2 diabetes mellitus with diabetic neuropathy, unspecified; Z98.890 Other specified postprocedural states; Z79.899 Other long term (current) drug therapy; Z79.891 Long term (current) use of opiate analgesic; Z79.4 Long term (current) use of insulin ==

== ENCOUNTER → 2020-07-20 | Outpatient (CLI) | payer OTHER, MEDICARE | LOC: M.RAD 15:12 | PROVIDERS: ATTEND Surgery | DX: M25.761 Osteophyte, right knee (principal) ==

== ENCOUNTER 2020-09-10 13:37 | Emergency (ER) | payer OTHER, MEDICARE ==
[~2020-09-10] VITALS: Ht 193 cm; Wt 122.5 kg
[2020-09-10] MEDS ORDERED: LANTUS SUBQ (13:49)
[2020-09-10] MEDS ORDERED: XANAX 0.5 MG0.5 M1 PO (13:50)
[2020-09-10] MEDS ORDERED: FUROSEMIDE 40 M40 MG PO (13:50)
[2020-09-10] MEDS ORDERED: FOSINOPRIL SODI40 M1 PO (13:50)
[2020-09-10] MEDS ORDERED: RENAL-VITE TAB0.8 MG PO (13:50)
[2020-09-10] MEDS ORDERED: ROCALTROL0.25 MCG PO (13:51)
[2020-09-10] MEDS ORDERED: RENVELA800 MG PO (13:51)
[2020-09-10 14:04] LABS: HEMATOCRIT 26.5 % (42.0-52.0); HEMOGLOBIN 9.2 gm/dL (14.0-18.0); MCH 32.1 pg (26.0-34.0); MCHC 34.7 g/dL (28.0-37.0); MCV 92.4 fL (80.0-100.0); MPV 6.8 fl. (7.2-11.1); NUCLEATED RBCS 0 /100WBC; PLATELET COUNT* 221 thou/uL (150-400); RBC 2.87 mil/uL (4.50-6.00); RDW-CV 17.2 % (10.5-14.5); WBC 9.3 thou/uL (4.0-11.0)
[2020-09-10 14:15] LABS: CREATININE 5.4 mg/dL (0.6-1.3); POTASSIUM 3.2 mmol/L (3.5-5.1)
[2020-09-10 14:17] LABS: APTT 25.6 Seconds (25.0-31.3); INR 0.9; PROTIME 9.9 Seconds (9.20-11.50)
[2020-09-10 14:25] LABS: ABSOLUTE EOSINOPHILS 0.6 thou/uL (0.0-0.7); ABSOLUTE LYMPHOCYTES 0.7 thou/uL (0.8-5.3); ABSOLUTE MONOCYTES 0.8 thou/uL (0.0-1.2); ABSOLUTE NEUTROPHILS 7.3 thou/uL (1.6-8.1); ANISOCYTOSIS 1+; PLATELET ESTIMATE ADEQUATE
[2020-09-10 14:28] LABS: ALBUMIN 2.9 g/dL (3.4-5.0); CK-MB MASS 6.5 ng/mL (<0.5-3.6); MAGNESIUM 1.7 mg/dL (1.8-2.4); TOTAL BILIRUBIN 0.3 mg/dL (<0.1-1.0)
[2020-09-10 16:27] VITALS: BP 164/94
--- NOTE | 2020-09-12 10:41 | EKG ---
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 : 1980 Requested By: Jean Joaquin Order Number: [id number] MD: Roman Slater Measurements Intervals [place] Rate: 88 P: 76 IA: 184 QRS: 58 QRSD: 89 T: 58 QT: 401 QTc: 486 Interpretive Statements Sinus rhythm Borderline prolonged QT interval Baseline wander in lead(s) V3 Compared to ECG 04/14/2020 07:28:22 No significant changes Electronically Signed On 09-12-2020 10:41:47 CDT by Roman Slater [email or web address] <ELECTRONICALLY SIGNED> By: Roman Slater MD, FAC 09/12/20 1041 1341 1341 Roman Slater MD, [facility] /EPI
== END 2020-09-10 16:28 | disposition home or self-care (01) ==
LOC: M.ERS 13:37
PROVIDERS: Family Medicine
DX: R07.89 Other chest pain (principal); E11.9 Type 2 diabetes mellitus without complications; I13.10 Hypertensive heart and chronic kidney disease without heart failure, with stage 1 through stage 4 chronic kidney disease, or unspecified chronic kidney disease; N18.2 Chronic kidney disease, stage 2 (mild); F17.210 Nicotine dependence, cigarettes, uncomplicated; Z79.4 Long term (current) use of insulin

== ENCOUNTER 2020-12-09 19:19 | Inpatient (IN) | payer OTHER, MEDICARE ==
[~2020-12-09] VITALS: Ht 193 cm; Wt 126.8 kg
[~2020-12-09 19:19] MED LIST changes: +FOSINOPRIL SODI40 M1 PO; +FUROSEMIDE 40 M40 MG PO; +LANTUS SUBQ; +RENAL-VITE TAB0.8 MG PO; +RENVELA800 MG PO; +ROCALTROL0.25 MCG PO
[2020-12-09 19:37] VITALS: BP 145/78
[2020-12-09] MEDS ORDERED: ZOLOFT25 MG PO (19:43)
[2020-12-09 20:25] LABS: HEMATOCRIT 26.8 % (42.0-52.0); HEMOGLOBIN 9.2 gm/dL (14.0-18.0); MCH 31.9 pg (26.0-34.0); MCHC 34.4 g/dL (28.0-37.0); MCV 92.7 fL (80.0-100.0); MPV 7.5 fl. (7.2-11.1); NUCLEATED RBCS 0 /100WBC; PLATELET COUNT* 333 thou/uL (150-400); RBC 2.89 mil/uL (4.50-6.00); RDW-CV 15.8 % (10.5-14.5); WBC 15.5 thou/uL (4.0-11.0)
[2020-12-09 20:39] LABS: CREATININE 21.1 mg/dL (0.6-1.3); POTASSIUM 5.7 mmol/L (3.5-5.1)
[2020-12-09 20:47] LABS: ABSOLUTE LYMPHOCYTES 1.7 thou/uL (0.8-5.3); ABSOLUTE MONOCYTES 0.3 thou/uL (0.0-1.2); ABSOLUTE NEUTROPHILS 13.5 thou/uL (1.6-8.1); ANISOCYTOSIS 1+; PLATELET ESTIMATE ADEQUATE; POLYCHROMASIA Occasional
[2020-12-09 20:48] LABS: ALBUMIN 3.1 g/dL (3.4-5.0); TOTAL BILIRUBIN 0.3 mg/dL (<0.1-1.0); TOTAL PROTEIN 7.7 g/dL (6.4-8.2)
[2020-12-09 20:49] LABS: CALCIUM 5.8 mg/dL (8.5-10.1)
[2020-12-09 22:39] LABS: URINE BILIRUBIN NEGATIVE (Negative); URINE BLOOD 2+ (Negative); URINE COLOR YELLOW; URINE GLUCOSE-RANDOM 1+ (Negative); URINE KETONES NEGATIVE (Negative); URINE NITRITE-REFLEX NEGATIVE (Negative); URINE PROTEIN 3+ (Negative); URINE SPECIFIC GRAVITY 1.025 (1.005-1.030); URINE UROBILINOGEN 0.2 E.U./dl (0.2-1.0)
[2020-12-09 22:47] LABS: URINE CLARITY SL HAZY; URINE LEUKOCYTES-REFLEX 2+ (Negative)
[2020-12-09 22:55] LABS: BACTERIA-REFLEX >30 Many /HPF (None Seen); CASTS None Seen /LPF (None Seen); CRYSTALS None Seen /LPF (None Seen); MUCUS 4-6 Moderate strn/LPF (None Seen); RENAL EPITHELIAL CELLS 0-3 Few /LPF (None Seen); SQUAMOUS 0-3 Few /LPF (0-3); TRANSITIONAL EPITHEL CELL 0-3 Few /LPF (None Seen); URINE RBC >20 Many /HPF (0-2); URINE WBC-REFLEX >25 Many /HPF (0-5); WBC CLUMPS Moderate (None Seen)
[2020-12-09 23:10] VITALS: BP 142/72
[2020-12-09 23:30] VITALS: BP 143/73
[2020-12-10] MEDS ORDERED: HYDRALAZINE 5050 MG PO (02:01)
[2020-12-10 04:47] VITALS: BP 138/56
[2020-12-10 07:55] VITALS: BP 144/77
[2020-12-10 14:15] VITALS: BP 129/64
[2020-12-10 16:00] VITALS: BP 120/60
[2020-12-10 20:00] VITALS: BP 143/80
[2020-12-11] VITALS: BP 105/59
[2020-12-11 04:00] VITALS: BP 118/64
[2020-12-11 04:46] LABS: ABSOLUTE EOSINOPHILS 0.2 thou/uL (0.0-0.7); ABSOLUTE LYMPHOCYTES 1.1 thou/uL (0.8-5.3); ABSOLUTE MONOCYTES 0.7 thou/uL (0.0-1.2); ABSOLUTE NEUTROPHILS 13.5 thou/uL (1.6-8.1); BASOPHILS 0.3 %; EOSINOPHILS 1.2 %; HEMATOCRIT 21.4 % (42.0-52.0); HEMOGLOBIN 7.3 gm/dL (14.0-18.0); LYMPHOCYTES 6.9 %; MCHC 34.3 g/dL (28.0-37.0); MCV 93.4 fL (80.0-100.0); MONOCYTES 4.5 %; MPV 7.5 fl. (7.2-11.1); NUCLEATED RBCS 0 /100WBC; PLATELET COUNT* 274 thou/uL (150-400); POLYS 87.1 %; RBC 2.29 mil/uL (4.50-6.00); RDW-CV 15.7 % (10.5-14.5); WBC 15.5 thou/uL (4.0-11.0)
[2020-12-11 04:52] LABS: CALCIUM 6.2 mg/dL (8.5-10.1); POTASSIUM 4.7 mmol/L (3.5-5.1)
[2020-12-11 04:53] LABS: CREATININE 19.9 mg/dL (0.6-1.3)
[2020-12-11 08:39] VITALS: BP 109/54
[2020-12-11 13:43] VITALS: BP 93/41
--- NOTE | 2020-12-11 19:30 | NUR ---
PT RESTING AT THIS TIME.VSS ON RA.BP WAS LOW PRIOR TO AFTERNOON MEDICATION AND HELD. PT HAS VOIDED ONE TIME FOR MY SHIFT.NO BMS SINCE ADMISSION.STILL C/O PAIN TO RECTUM.PT EDUCATED ON USE OF HYDROCORTISONE AND REDUCTION OF SWELLING.PT AGREED TO USE WITH ORAL MEDICATIONS TO ASSIST WITH DISCOMFORT. PT TO RECIEVE PERITONEAL DIALYSIS.NOTHING FURTHER AT THIS TIME.CLWR.WCTM
[2020-12-11 19:39] VITALS: BP 104/41
[2020-12-11 19:40] VITALS: BP 138/61
[2020-12-12] VITALS: BP 143/53
[2020-12-12 04:00] VITALS: BP 102/48
[2020-12-12 04:23] LABS: ABSOLUTE BASOPHILS 0.1 thou/uL (0.0-0.2); ABSOLUTE EOSINOPHILS 0.1 thou/uL (0.0-0.7); ABSOLUTE LYMPHOCYTES 0.6 thou/uL (0.8-5.3); ABSOLUTE MONOCYTES 0.7 thou/uL (0.0-1.2); BASOPHILS 0.4 %; EOSINOPHILS 0.9 %; HEMATOCRIT 21.5 % (42.0-52.0); HEMOGLOBIN 7.3 gm/dL (14.0-18.0); LYMPHOCYTES 3.6 %; MCH 31.7 pg (26.0-34.0); MCHC 33.8 g/dL (28.0-37.0); MCV 93.8 fL (80.0-100.0); MONOCYTES 4.5 %; MPV 7.4 fl. (7.2-11.1); NUCLEATED RBCS 0 /100WBC; PLATELET COUNT* 269 thou/uL (150-400); POLYS 90.6 %; RBC 2.29 mil/uL (4.50-6.00); RDW-CV 15.5 % (10.5-14.5); WBC 15.5 thou/uL (4.0-11.0)
[2020-12-12 05:02] LABS: ALBUMIN 2.5 g/dL (3.4-5.0); CALCIUM 6.2 mg/dL (8.5-10.1); CREATININE 19.6 mg/dL (0.6-1.3); POTASSIUM 5.1 mmol/L (3.5-5.1); TOTAL BILIRUBIN 0.1 mg/dL (<0.1-1.0); TOTAL PROTEIN 6.6 g/dL (6.4-8.2)
--- NOTE | 2020-12-12 09:33 | NUR ---
CM ASSESSMENT: PT A&O, AND INDEPENDENT WITH ADL'S. PT RESIDES AT HOME. PT HAS LEFT LEG PROSTESIS AND USES 0 DME WHEN WEARING IT. PT USES W/C WHEN NOT USING PROSTESIS. PT HAS 0 HX OF HH OR SNF. PT CURRENTLY ON PERITONEAL DIALYSIS THRU [facility]. CM TO CALL AND FAX [facility]'S CLINICAL INFO AT D/C. NO OTHER CM D/C PLANNING NEEDS ANTICIPATED. CM WILL REMAIN AVAILABLE TO ASSIST AND FOLLOW NEEDED.
[2020-12-12 09:43] VITALS: BP 95/49
[2020-12-12] MEDS ORDERED: CALCIUM CARBON500 MG PO (11:56)
[2020-12-12 13:23] VITALS: BP 95/50
[2020-12-12 18:12] VITALS: BP 95/50
--- NOTE | 2020-12-12 19:40 | NUR ---
Reviewed discharge teaching with patient, including smoking cessation; verbalized understanding. front desk monitor and IV dc'd. Discharged from unit per WC.
[2020-12-12 20:00] VITALS: BP 123/61
[2020-12-13 08:07] LABS: HEPATITIS B SURFACE AG Negative (Negative)
--- NOTE | 2020-12-19 10:13 | CON ---
[facility] [address] [place] [address] CONSULTATION Name: ED VALDOVINOS Room: [address] IN .R.#: [id number] Admission: 12/09/20 Attend Phys: Emely To MD Discharge: 12/12/20 Date of : 82 Report #: [id number] THIS REPORT FOR: cc: Maximo Plata MD, James MD Arakelov,Johnny Campa MD ~ DOC #: [id number] Johnny Archer MD DATE OF CONSULTATION: 12/10/2020 REQUESTING PHYSICIAN: Dr. To. REASON FOR CONSULTATION: Assistance in providing dialysis. HISTORY OF PRESENT ILLNESS: The patient is a 40-year-old man with medical history significant for end-stage renal disease on peritoneal dialysis. Also, has history of noncompliance, apparently has not done his PD for the last several days. He knows that he needs to do it every day. When I asked him why he did not do it, he told me that he fell asleep. So, he does not have any good reason not to do his dialysis. Admitted with abnormal labs. Apparently, was told his calcium level was low. BUN was 143, creatinine was 21, potassium was 5.7, so he came in with setting up of dialysis. OTHER PROBLEMS: Include obesity, diabetes mellitus type 2. SOCIAL HISTORY: Smokes cigarettes every day. Denies use of alcohol. FAMILY HISTORY: Positive for hypertension and obesity. MEDICATIONS: Reviewed. PHYSICAL EXAMINATION: GENERAL: Examining on dialysis, obese gentleman, in no acute distress. VITAL SIGNS: Blood pressure 144/77, heart rate is 67, respiratory rate is 12, afebrile. HEENT: Pupils are round. NECK: Fatty. LUNGS: Decreased air movements. CARDIOVASCULAR: Regular rate. ABDOMEN: Obese. EXTREMITIES: Lower extremities, no edema. ASSESSMENT: 1. End-stage renal disease, on peritoneal dialysis. 2. Noncompliance with dialysis prescription. He has [place] [address] CONSULTATION Name: ED VALDOVINOS Room: [address] [place] [facility]#: [id number] Admission: 12/09/20 Attend Phys: Emely To MD Discharge: 12/12/20 Date of : 82 Report #: [id number] last several days. 3. Diabetes mellitus. PLAN: [employer]ze and veterans' counselor on compliance. MD JAYCEE Stewart/VINOD/JLUIS <ELECTRONICALLY SIGNED> By: Johnny Archer MD 12/19/20 1013 [id number] [id number] Lokesh Archer MD /christiano
== END 2020-12-12 19:40 | disposition home or self-care (01) | DRG 291 ==
LOC: M.ERS 19:19 → M.TBA-ER 21:18 → M.2W 21:18
PROVIDERS: Internal Medicine; Internal Medicine Nephrology; Physician Assistant; ADMIT Internal Medicine; ATTEND Internal Medicine
PROC: 5A1D70Z Performance of Urinary Filtration, Intermittent, Less than 6 Hours Per Day (ICD-10-PCS; principal; 2020-12-10)
DX: I13.2 Hypertensive heart and chronic kidney disease with heart failure and with stage 5 chronic kidney disease, or end stage renal disease (principal); N18.6 End stage renal disease; N39.0 Urinary tract infection, site not specified; E11.22 Type 2 diabetes mellitus with diabetic chronic kidney disease; I50.9 Heart failure, unspecified; F17.210 Nicotine dependence, cigarettes, uncomplicated; E66.01 Morbid (severe) obesity due to excess calories; E83.51 Hypocalcemia; D64.9 Anemia, unspecified; K64.4 Residual hemorrhoidal skin tags; Z20.822 Contact with and (suspected) exposure to COVID-19; Z99.2 Dependence on renal dialysis; Z79.4 Long term (current) use of insulin; Z79.899 Other long term (current) drug therapy; Z68.34 Body mass index [BMI] 34.0-34.9, adult; Z91.15 Patient's noncompliance with renal dialysis; Z89.512 Acquired absence of left leg below knee; Z89.411 Acquired absence of right great toe